=== PATIENT | female | born 1990 | race Caucasian/White ===

== ENCOUNTER 2020-05-13 22:00 | Inpatient (IN) | payer BC ==
[2020-05-13] MEDS ORDERED: PROMETHAZINE HCL 25 MG/1 ML VIAL IVPB ONE (23:00)
[2020-05-13] MEDS ORDERED: ELECTROLYTE-148 SOLN 500 ML IV ONE (23:00)
[2020-05-13] MEDS ORDERED: BUTORPHANOL TARTRATE 1 MG/ML VIAL IVPB ONE (23:00)
[2020-05-13 23:35] LABS: BASO % 0.7 % (0-2.0); EOS % 0.5 % (0-4.5); HEMATOCRIT 34.3 % (32.4-45.2); HEMOGLOBIN 11.1 GM/dL (10.7-15.3); LYMPH % 15.6 % (8-40); MCH 28.5 pg (25.7-33.7); MCHC 32.3 g/dl (32.0-36.0); MEAN CELL VOLUME 88.3 fl (80-96); MEAN PLT VOLUME 9.7 fl (7.5-11.1); MONO % 6.4 % (3.8-10.2); NEUT % 76.8 % (42.8-82.8); PLATELET COUNT 306 K/MM3 (134-434); RBC 3.89 M/mm3 (3.60-5.2); RDW 14.9 % (11.6-15.6); WHITE BLOOD COUNT 12.6 K/mm3 (4.0-10.0)
[2020-05-13 23:44] LABS: INR 0.9 (0.83-1.09); PROTHROMBIN TIME (PATIENT) 10.6 SEC (9.7-13.0)
[2020-05-13 23:47] LABS: ACTIVATED PTT 24.1 SECONDS (25.2-36.5)
[2020-05-13 23:59] LABS: BLOOD UREA NITROGEN 8.6 mg/dL (7-18); CALCIUM 9.5 mg/dL (8.5-10.1); CREATININE 0.6 mg/dL (0.55-1.3); POTASSIUM 4.4 mmol/L (3.5-5.1)
[2020-05-14] MEDS: ELECTROLYTE-148 SOLN 1,000 ML IV SCH (00:10)
[2020-05-14] MEDS ORDERED: PROMETHAZINE HCL 25 MG/1 ML VIAL ONE (00:37)
[2020-05-14] MEDS ORDERED: BUTORPHANOL TARTRATE 2 MG/ML VIAL ONE (00:37)
[2020-05-14 01:14] VITALS: BMI 45.7
[2020-05-14] MEDS ORDERED: LIDOCAINE HCL 1% PRESERVATIVE FREE - 30ML VIAL ONE (07:55)
[2020-05-14] MEDS ORDERED: CITRIC ACID/SODIUM CITRATE 30 ML UNIT-DOSE CUP PO ONE (08:05)
[2020-05-14] MEDS ORDERED: ELECTROLYTE-148 SOLN 500 ML IV ONE (08:05)
--- NOTE | 2020-05-14 08:09 | HP ---
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: No: Alzheimer's, CVA, Dementia, Migraine, Multiple Sclerosis, Peripheral Neuropathy, Parkinson's, Seizure, Syncope, TIA, Vertigo, Other Cardiovascular: No: AFIB, Aneurysm, Aortic Insufficiency, Aortic Stenosis, CAD, CHF, Deep Vein Thrombosis, HTN, Hyperlipdemia, WI, Mitral Insufficiency, Mitral Stenosis, Murmur, Pulmonary Hypertension, Other Pulmonary: No: Asthma, Bronchitis, Cancer, COPD, O2 Dependent, Pneumonia, Previously Intubated, Pulmonary Embolus, Pulmonary Fibrosis, Sleep Apnea, Other Gastrointestinal: No: Ascites, Cancer, Constipation, Crohn's Disease, Diverticulitis, Diverticulosis, Esophageal Varices, Gastritis, GERD, GI Bleed, Hemorrhoids, Hiatal Hernia, Inflamatory Bowel Disease, Irritable Bowel Disease, Pancreatitis, Peptic Ulcer Disease, Ulcerative Colitis, Other Hepatobiliary: No: Cirrhosis, Cholelithiasis, Cholecystitis, Choledocholithia sis, Hepatitis A, Hepatitis B, Hepatitis C, Other Renal/: No: Renal Failure, Renal Inusuff, BPH, Cancer, Hematuria, Hemodialysis, Neurogenic Bladder, Renal Calculi, UTI, Other Reproductive: No: Ectopic , Endometriosis, Fibroids, PID, Polycystic Ovary Syndrome, Postmenopausal, Other ...: 1 ...Para: 0 ...EDC by Jigar: 05/12/20 Heme/Onc: No: Anemia, B12 Deficiency, Bleeding Disorder, Cancer, Current Chemotherapy, Current Radiation Therapy, Hemochromatosis, Hypercoaguable State, Myeloproliferative Synd, Sickle Cell Disease, Sickle Cell Trait, Thrombocytopenia, Other Infectious Disease: No: AIDS, C-Diff, Herpes Zoster, HIV, MRSA, STD's, Tuberculosis, VREF, Other Psych: No: Addictions, Anxiety, Bipolar, Depression, Panic, Psychosis, Schizophrenia, Other Musculoskeletal: No: Bursitis, Chronic low back pain, Hemiparesis, Hemiplegia, Osteoarthritis, Paraplegia, Other Rheumatology: No: Fibromyalgia, Gout, Lupus, Rheumatoid Arthritis, Sarcoidosis, Vasculitis, Other ENT: No: Allergic Rhinitis, Sinusitis, Other Endocrine: No: Labette's Disease, Cleveland's Disease, Diabetes Insipidus, Diabetes Mellitus, Hyperparathyroidism, Hyperthyroidism, Hypothyroidism, Osteopenia, SIADH, Other Dermatology: No: Basal Cell, Cellulitis, Eczema, Melanoma, Psoriasis, Squamous Cell, Other - Past Surgical History Past Surgical History: No: None, AAA Repair, AICD, Amputation, Appendectomy, Arthrosocopy, AV Fistula/Graft, Bariatric Surgery, Breast Biopsy, Bypass, CABG, Carotid Endarterectomy, Cataract Removal, Cholecystectomy, Colectomy, Colonoscopy, Colostomy, Craniotomy, , Cystectomy, Hernia Repair, Hysterectomy, Ileal Conduit, Ileosotomy, Joint Replacement, Kidney Transplant, Laminectomy, Liver Transplant, Mastectomy, Nephrectomy, Oopherectomy, Orchiectomy, Permanent Pacemaker, Prostatectomy, Splenectomy, Stent, Thoracotomy, TURP, Tonsillectomy, Tubal Ligation, Upper Endoscopy, Valve Replacement, Vasectomy, Vein Stripping/Ligation Hx Myomectomy: No Hx Transabdominal Cerclage: No - Advance Directives Advance Directives: Yes: Living Will - Smoking History Smoking history: Never smoked Have you smoked in the past 12 months: No - Alcohol/Substance Use Hx Alcohol Use: No History of Substance Use: reports: None - Social History Usual Living Arrangement: Yes: With Significant Other Do you think of yourself as: Straight/Heterosexual ADL: Independent History of Recent Travel: No Home Medications - Allergies Allergies/Adverse Reactions: Allergies Allergy/AdvReac Type Severity Reaction Status Date / Time No Known Allergies Allergy Verified 05/14/20 00:00 - Home Medications Home Medications: Ambulatory Orders Labetalol HCl [Normodyne -] 200 mg PO DAILY 05/14/20 Pnv No.95/Ferrous Fum/Folic AC [ Vitamin Tablet] 1 tab PO DAILY 05/14/20 Family Medical History Family History: Denies Review of Systems - Review of Systems Constitutional: reports: No Symptoms Eyes: reports: No Symptoms HENT: reports: No Symptoms Neck: reports: No Symptoms Cardiovascular: reports: No Symptoms Respiratory: reports: No Symptoms Gastrointestinal: reports: No Symptoms Genitourinary: reports: No Symptoms Breasts: reports: No Symptoms Reported Musculoskeletal: reports: No Symptoms Integumentary: reports: No Symptoms Neurological: reports: No Symptoms Endocrine: reports: No Symptoms Hematology/Lymphatic: reports: No Symptoms Psychiatric: reports: No Symptoms Physical Exam - Maternity Vital Signs: Vital Signs Temperature 99.3 F 05/14/20 06:00 Pulse Rate 97 H 05/14/20 06:00 Respiratory Rate 18 07/24/20 06:00 Blood Pressure 137/79 05/14/20 06:00 O2 Sat by Pulse Oximetry (%) Constitutional: Yes: Well Nourished, No Distress, Calm Eyes: Yes: WNL, Conjunctiva Clear, EOM Intact HENT: Yes: WNL, Atraumatic, Normocephalic Neck: Yes: WNL, Supple, Trachea Midline Cardiovascular: Yes: WNL, Regular Rate and Rhythm Breast(s): Yes: WNL - Abdominal Exam/OB Number of Fetuses: Single Presentation: Vertex Contractions: Yes Regularity: Regular Intensity: Mod/Strong Monitor Mode: External Heart Rate (range): 150 Category: I Accelerations: Uniform Decelerations: None - Vaginal Exam/OB Vaginal Bleeding: No Speculum Exam: No Dilatation (cm): 2 Effacement (%): 80 Amniotic Membrane Status: Intact Presentation: Vertex/Position Station: -3 - Physical Exam Musculoskeletal: Yes: WNL Extremities: Yes: WNL Edema: Yes Edema: LUE: 2+, RUE: 2+, LLE: 2+, RLE: 2+ Integumentary: Yes: WNL Deep Tendon Reflex Grade: Normal +2 ...Motor Strength: WNL Psychiatric: Yes: WNL, Alert, Oriented - Labs Lab Results: CBC, BMP 05/13/20 23:15 05/13/20 23:15 Hemorrhage Risk Assessment - Risk Factors Medium Risk Factors: Yes: None High Risk Factors: Yes: None Risk Score: 1 Risk Level: Medium Risk Assessment/Plan for laboring, pt had cat 1 and cat 2 nst, on and off, cervix is unfavarable, labile bp on labetolo, for c s
[2020-05-14] MEDS ORDERED: morphine SULFATE/PF 0.5 MG/ML (2cc Syringe - QUVA) ONE (08:10)
[2020-05-14] MEDS ORDERED: ELECTROLYTE-148 SOLN 1,000 ML IV SCH (08:15)
[2020-05-14] MEDS ORDERED: SENNOSIDES/DOCUSATE COMBO (SENNA PLUS) TABLET (UD) PO PRN (09:35)
[2020-05-14] MEDS ORDERED: METHYLERGONOVINE MALEATE 0.2 MG/1 ML AMP IM PRN (09:35)
[2020-05-14] MEDS ORDERED: IBUPROFEN 800 MG/8 ML IJ IVPB PRN (09:35)
[2020-05-14] MEDS ORDERED: oxyCODONE HCL 5 MG TABLET PO PRN (09:35)
[2020-05-14] MEDS ORDERED: PRENATAL VITAMINS W/ FOLIC ACID TABLET (FP) PO SCH (10:00)
[2020-05-14] MEDS: LABETALOL HCL 200 MG TABLET (FP) PO SCH ×2 (10:00→22:18)
[2020-05-14] MEDS ORDERED: ONDANSETRON 4 MG/2 ML VIAL IVPUSH PRN (10:33)
[2020-05-14] MEDS ORDERED: OXYTOCIN 20 UNITS in 0.9% NS 20 UNIT/1,000 ML INFUS.BAG IV ONE (11:27)
[2020-05-14] MEDS: OXYTOCIN 20 UNITS in 0.9% NS 20 UNIT/1,000 ML INFUS.BAG IV SCH ×2 (11:30→19:48)
[2020-05-14] MEDS ORDERED: ACETAMINOPHEN INJECTION 100 ML IVPB ONE (11:32)
[2020-05-14] MEDS ORDERED: ACETAMINOPHEN 1000 MG/100 ML VIAL (NON FORMULARY) IVPB ONE (12:52)
--- NOTE | 2020-05-14 14:52 | OP ---
Operative Note - Note: Operative Date: 05/14/20 Pre-Operative Diagnosis: non reasssuring fht, f t progress Operation: primary lt c s Post-Operative Diagnosis: Same as Pre-op Surgeon: Merrick Mccloud Information Coder: Yao Michael Anesthesia: Spinal Estimated Blood Loss (mls): 500 (no complications ) Operative Report Dictated: Yes
[2020-05-14] MEDS: oxyCODONE HCL 5 MG TABLET PO PRN (18:31)
[2020-05-14] MEDS: SIMETHICONE 80 MG TAB.CHEW (FP) PO PRN (18:32)
[2020-05-14] MEDS: ACETAMINOPHEN 325 MG TABLET (FP) PO PRN (18:32)
[2020-05-15] MEDS: oxyCODONE HCL 5 MG TABLET PO PRN ×2 (01:45→06:38)
[2020-05-15] MEDS: ELECTROLYTE-148 SOLN 1,000 ML IV SCH (01:45)
[2020-05-15] MEDS: ACETAMINOPHEN 325 MG TABLET (FP) PO PRN ×4 (01:46→17:56)
[2020-05-15] MEDS: SIMETHICONE 80 MG TAB.CHEW (FP) PO PRN ×2 (01:46→06:37)
[2020-05-15 07:28] LABS: BASO % 0.3 % (0-2.0); EOS % 0.1 % (0-4.5); HEMATOCRIT 30.9 % (32.4-45.2); HEMOGLOBIN 9.8 GM/dL (10.7-15.3); MCH 28.1 pg (25.7-33.7); MCHC 31.6 g/dl (32.0-36.0); MEAN CELL VOLUME 88.8 fl (80-96); MONO % 8.5 % (3.8-10.2); NEUT % 75.1 % (42.8-82.8); PLATELET COUNT 305 K/MM3 (134-434); RBC 3.48 M/mm3 (3.60-5.2); RDW 15.1 % (11.6-15.6); WHITE BLOOD COUNT 13.4 K/mm3 (4.0-10.0)
[2020-05-15] MEDS ORDERED: BISACODYL 10 MG SUPP.RECT RC PRN (09:35)
[2020-05-15] MEDS: LABETALOL HCL 200 MG TABLET (FP) PO SCH ×2 (10:11→22:28)
[2020-05-15] MEDS: ENOXAPARIN NA (PORCINE) 40 MG/0.4 ML DISP.SYRIN SQ SCH (10:11)
[2020-05-15] MEDS: IBUPROFEN 600 MG TABLET (FP) PO PRN ×2 (10:11→17:56)
[2020-05-15] MEDS: PRENATAL VITAMINS W/ FOLIC ACID TABLET (FP) PO SCH (10:11)
--- NOTE | 2020-05-15 20:16 | PN ---
Post Progress Note Post Day: 1 Type of Delivery: Primary C/S Vital Signs: Vital Signs Temperature 98.4 F 05/15/20 09:00 Pulse Rate 109 H 05/15/20 18:00 Respiratory Rate 18 05/15/20 18:00 Blood Pressure 126/67 05/15/20 18:00 O2 Sat by Pulse Oximetry (%) 97 05/14/20 22:00 Breast Exam: Yes: Soft Uterus: Yes: Fundus Firm Incision: Yes: Dressing dry and intact, Sutures intact Abdomen/GI: Yes: Abdomen soft, Passing flatus, Tolerating PO Lochia: Yes: Serosa Lochia, amount: Small Extremities: Yes: Calves non-tender Activity: Ambulating - Labs Labs: CBC WBC 13.4 K/mm3 (4.0-10.0) H 05/15/20 07:15 RBC 3.48 M/mm3 (3.60-5.2) L 05/15/20 07:15 Hgb 9.8 GM/dL (10.7-15.3) L 05/15/20 07:15 Hct 30.9 % (32.4-45.2) L 05/15/20 07:15 MCV 88.8 fl (80-96) 05/15/20 07:15 MCH 28.1 pg (25.7-33.7) 05/15/20 07:15 MCHC 31.6 g/dl (32.0-36.0) L 05/15/20 07:15 RDW 15.1 % (11.6-15.6) 05/15/20 07:15 Plt Count 305 K/MM3 (134-434) 05/15/20 07:15 MPV 9.0 fl (7.5-11.1) 05/15/20 07:15 Absolute Neuts (auto) 10.1 K/mm3 (1.5-8.0) H 05/15/20 07:15 Neutrophils % 75.1 % (42.8-82.8) 05/15/20 07:15 Lymphocytes % 16.0 % (8-40) 05/15/20 07:15 Monocytes % 8.5 % (3.8-10.2) 05/15/20 07:15 Eosinophils % 0.1 % (0-4.5) 05/15/20 07:15 Basophils % 0.3 % (0-2.0) 05/15/20 07:15 Nucleated RBC % 0 % (0-0) 05/15/20 07:15 Assessment/Plan dc ivf, oob , regular diet
[2020-05-16] MEDS: IBUPROFEN 600 MG TABLET (FP) PO PRN (03:26)
[2020-05-16] MEDS: ACETAMINOPHEN 325 MG TABLET (FP) PO PRN (03:27)
[2020-05-16] MEDS: SIMETHICONE 80 MG TAB.CHEW (FP) PO PRN (03:27)
[2020-05-16 09:41] VITALS: BP 120/67; PULSE 97; TEMP 97.6
[2020-05-16] MEDS: PRENATAL VITAMINS W/ FOLIC ACID TABLET (FP) PO SCH (10:07)
[2020-05-16] MEDS: ENOXAPARIN NA (PORCINE) 40 MG/0.4 ML DISP.SYRIN SQ SCH (10:07)
[2020-05-16] MEDS: LABETALOL HCL 200 MG TABLET (FP) PO SCH (10:07)
--- NOTE | 2020-05-16 11:41 | PN ---
Post Progress Note Post Day: 2 Type of Delivery: Primary C/S Vital Signs: Vital Signs Temperature 97.6 F 05/16/20 09:00 Pulse Rate 97 H 05/16/20 09:00 Respiratory Rate 20 05/16/20 09:00 Blood Pressure 120/67 05/16/20 09:00 O2 Sat by Pulse Oximetry (%) 97 05/14/20 22:00 Breast Exam: Yes: Soft Uterus: Yes: Fundus Firm, Fundus below umbilicus, Non-tender Incision: Yes: Dressing dry and intact, Sutures intact Abdomen/GI: Yes: Abdomen soft, Passing flatus, Tolerating PO Lochia: Yes: Serosa Lochia, amount: Small Extremities: Yes: Calves non-tender Perineum: Yes: Intact Activity: Ambulating (doing well, pain is not too severe, will go home today ) - Labs Labs: CBC WBC 13.4 K/mm3 (4.0-10.0) H 05/15/20 07:15 RBC 3.48 M/mm3 (3.60-5.2) L 05/15/20 07:15 Hgb 9.8 GM/dL (10.7-15.3) L 05/15/20 07:15 Hct 30.9 % (32.4-45.2) L 05/15/20 07:15 MCV 88.8 fl (80-96) 05/15/20 07:15 MCH 28.1 pg (25.7-33.7) 05/15/20 07:15 MCHC 31.6 g/dl (32.0-36.0) L 05/15/20 07:15 RDW 15.1 % (11.6-15.6) 05/15/20 07:15 Plt Count 305 K/MM3 (134-434) 05/15/20 07:15 MPV 9.0 fl (7.5-11.1) 05/15/20 07:15 Absolute Neuts (auto) 10.1 K/mm3 (1.5-8.0) H 05/15/20 07:15 Neutrophils % 75.1 % (42.8-82.8) 05/15/20 07:15 Lymphocytes % 16.0 % (8-40) 05/15/20 07:15 Monocytes % 8.5 % (3.8-10.2) 05/15/20 07:15 Eosinophils % 0.1 % (0-4.5) 05/15/20 07:15 Basophils % 0.3 % (0-2.0) 05/15/20 07:15 Nucleated RBC % 0 % (0-0) 05/15/20 07:15
--- NOTE | 2020-05-16 11:43 | DS ---
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 Vital Signs: Vital Signs Temperature 97.6 F 05/16/20 09:00 Pulse Rate 97 H 05/16/20 09:00 Respiratory Rate 20 05/16/20 09:00 Blood Pressure 120/67 05/16/20 09:00 O2 Sat by Pulse Oximetry (%) 97 05/14/20 22:00 Constitutional: Yes: Well Nourished, No Distress, Calm Eyes: Yes: WNL, Conjunctiva Clear, EOM Intact HENT: Yes: WNL, Atraumatic, Normocephalic Neck: Yes: WNL, Supple, Trachea Midline Cardiovascular: Yes: WNL, Regular Rate and Rhythm Respiratory: Yes: WNL, Regular, CTA Bilaterally Gastrointestinal: Yes: WNL, Normal Bowel Sounds, Soft ...Rectal Exam: Yes: WNL Renal/: Yes: WNL Pelvis: Yes: WNL External Genitalia: Yes: Normal Internal Exam Deferred: No Vaginal Exam: Yes: Normal Cervix: Yes: Normal Uterus: Yes: Normal ....Post : Yes: Uterus firm, Uterus non-tender Breast(s): Yes: WNL Musculoskeletal: Yes: WNL Extremities: Yes: WNL Edema: Yes Integumentary: Yes: WNL Wound/Incision: Yes: Clean/Dry, Well Approximated Neurological: Yes: WNL, Alert, Oriented ...Motor Strength: WNL Psychiatric: Yes: WNL, Alert, Oriented Labs: CBC, BMP 05/15/20 07:15 05/13/20 23:15 Delivery - Delivery Type of Anesthesia: Spinal Episiotomy/Laceration: None EBL (cc): 800 Delivery, Single - Stages of Labor Date 1st Stage Initiatied: 05/13/20 Time 1st Stage Initiated: 17:00 Date of Delivery: 05/14/20 Time of Delivery: 08:50 Time Placenta Delivered: 08:51 - Condition of Infant 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 Present: Yes Name: Marcia Gerber Infant Gender: Female Weight: 3.572 kg Position: Left, OT Total Hours ROM (Hrs/Mins): 2min - 1 Minute Total Score: 9 5 Minutes Total Score: 9 - [place] Feeding Plan Initial Plan: Elected not to breastfeed exclusively throughout hospitalization Discharge Summary Problems reviewed: Yes Reason For Visit: LABOR ADMIT Procedures: Principal: primary lt c s Other Procedures: none Hospital Course: uneventful Health Concerns: none Plan of Treatment: oob as much as possible Condition: Good - Instructions Diet, Activity, Other Instructions: Physical activity Resume your normal everyday activity as tolerated no heavy lifting or exercise until seen by your surgeon. You may walk unlimited alexandra of and climb stairs. You may resume driving the car when you feel safe and comfortable behind the wheel. No sexual activity as instructed. Wound care If you have a bandage, leave it on, and keep dry for 48-72 hours. After that time discard the outer bandage. If they are tapes on the skin under the out of bandage leave them in place. They will peel off in the next 7 to 10 days. Do Not Peel them off. You may shower the day after surgery. If there are tapes present on the skin, you may shower over them. Diet There are no dietary restrictions. Eat healthy, high-fiber foods. Drink 6 to 8 glasses of liquid each day. This will assist in keeping your bowels are regular. Pain management You may take Tylenol or acetaminophen or Ibuprofen (for example, Motrin, Advil etc.) from my pain prescription medication is ordered should be taken as prescribed for moderate to severe pain. Call MD for any of the following: call dr handy for 2 weeks appointment Severe pain not relieved by medication Fever of 101 or higher Excessive bleeding or drainage on dressing Inability to urinate Referrals: Merrick Handy MD [Staff Physician] - Disposition: HOME - Home Medications Comprehensive Discharge Medication List: Ambulatory Orders Labetalol HCl [Normodyne -] 200 mg PO DAILY 05/14/20 Pnv No.95/Ferrous Fum/Folic AC [ Vitamin Tablet] 1 tab PO DAILY 05/14/20 Prescription Drug Monitoring Program (I-STOP) results: I-STOP reviewed and no issues identified
--- NOTE | 2020-05-17 09:33 | OP ---
DATE OF OPERATION: 05/14/2020 PREOPERATIVE DIAGNOSIS: Nonreassuring heart rate tracing and failure to progress. POSTOPERATIVE DIAGNOSIS: Nonreassuring heart rate tracing and failure to progress. PROCEDURE: Primary low-transverse section. SURGEON: Merrick Mccloud MD AUTOMOBILE [employer] PROPERTY UNDERWRITER: WENDI Orozco ANESTHESIA: Spinal. ANESTHESIOLOGIST: Nina Vieyra MD BLOOD LOSS: About 500 mL. INDICATION: A 29-year-old female patient 40 weeks' and 1 day supposed to be induced on May 14 and they came in the night before complaining of karla every 2 to 3 minutes. Patient is also known to be chronic high blood pressure on labetalol, and the patient also is a border gestational diabetic on diet control. Patient's BMI is high, 45.7. So, patient was evaluated. Cervix 1 to 2 cm and has never passed that stage and the patient karla every 2 to 3 minutes. When patient came in, patient was category 2 tracing, and this reversed to be category 1 tracing. So, throughout the night, we IV hydrated her, and we gave our patient a dose of Stadol and patient relaxed and the patient's tracing was reversed to a category 1 and occasionally reversed to a category 2 tracing. So, in the morning, after 6 to 7 hours of evaluation, patient still has occasional category 2 tracing and a blood pressure in the range of 150/100 range. So, decision was made with the cervix with no progression, with karla 4 to 7 hours every 2 to 3 minutes, with above finding of a category 2 tracing, patient was taken to the OR for primary low transverse section. DESCRIPTION OF PROCEDURE: Patient was placed on the operating table in supine position after the spinal anesthesia was obtained. The patient's abdomen and pelvis were prepped and draped in the usual sterile manner. A Pfannenstiel incision was made through skin and subcutaneous tissue, and then fascia was nicked in the midline, then fascia extended bilaterally. Intraperitoneal cavity was entered. Bladder flap was not created. The low transverse segment of the uterus was entered. Baby delivered from LOP position. Baby handed over 5th grade teacher after umbilical cord doubly clamped and cut. No cord blood gas was obtained. Placenta was removed. Uterus was closed in single layer first with interlocking Vicryl sutures. Good hemostasis. Both gutters were cleaned. Both ovaries, fallopian tubes, and ureters were within normal limits. No complications. Tolerated the procedure well. Draining clear urine. Blood loss was about 500 mL. Peritoneum was closed. Fascia was closed. Skin was closed. Transferred to recovery room in stable condition. MD DOMONIQUE BOSCH/[id number]
--- NOTE | 2020-05-19 13:17 | PATH ---
Surgical Pathology Report Patient Name: GINA AYALA [facility]. Rec. #: [id number] /Age/Gender: 1990 (Age: 30) / F Account: [id number] Location: 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 Hx of chronic hypertension, GDM, diet-controlled Final Diagnosis PLACENTA: THIRD TRIMESTER PLACENTA WITH SUBCHORIONIC FIBRIN DEPOSITION. TRIVASCULAR CORD. MEMBRANES WITH NO DIAGNOSTIC ABNORMALITIES. Electronically Signed Cassandra Lara M.D. Gross Description The specimen is received fresh labeled placenta and is a 678 gram, 21 x20 x 1.8cm. placenta with attached membranes and umbilical cord. The attached membranes are glistening, translucent, and insert marginally. The umbilical cord measures 43.5 cm. in length and averages 1.5 cm. in diameter. The cord inserts centrally, 6.5 centimeter to the nearest margin. No true knots or strictures are identified. Cut surface of the umbilical cord reveals 3 vessels. Sectioning reveals red-brown, spongy parenchyma. No lesions are identified. Cad Engineer sections are submitted in three cassettes as follows: 1- membrane rolls and umbilical cord; 2-3- full thickness sections of placenta
== END 2020-05-16 13:05 | disposition home or self-care (01) | DRG 787 ==
LOC: JLDR 22:00 → J3W 05-14 11:45
PROVIDERS: ADMIT Obstetrics & Gynecology; ATTEND Obstetrics & Gynecology
PROC: 10D00Z1 Extraction of Products of Conception, Low, Open Approach (ICD-10-PCS; principal; 2020-05-14)
DX: O76 Abnormality in fetal heart rate and rhythm complicating labor and delivery (principal); O10.92 Unspecified pre-existing hypertension complicating childbirth; O62.0 Primary inadequate contractions; Z3A.40 40 weeks gestation of pregnancy; Z37.0 Single live birth; O48.0 Post-term pregnancy; O24.420 Gestational diabetes mellitus in childbirth, diet controlled
CPT/HCPCS: 36415; 80048; 85025; 85610; 85730; 86780; 86850; 86900; 86901; 87389; 88307-TC; J0131